=== PATIENT | male | born 2005 | race Hispanic/Latino ===

== ENCOUNTER 2023-10-21 15:04 | Emergency (ER) | payer SELFPAY ==
[2023-10-21] MEDS ORDERED: Ketorolac Tromethamine 30 MG (1 mL) VIAL ONE (15:49)
== END 2023-10-21 16:35 | disposition home or self-care (01) ==
LOC: CSHERS 15:04
DX: M25.572 Pain in left ankle and joints of left foot (principal); F17.290 Nicotine dependence, other tobacco product, uncomplicated
CPT/HCPCS: 96372; J1885

== ENCOUNTER 2023-10-26 14:10 | Emergency (ER) | payer SELFPAY | END 2023-10-26 14:40 | disposition home or self-care (01) | LOC: CSHERS 14:10 | DX: M25.572 Pain in left ankle and joints of left foot (principal); F17.290 Nicotine dependence, other tobacco product, uncomplicated | CPT/HCPCS: 99281 ==